=== PATIENT | male | born 1990 | race Two or more races ===

== ENCOUNTER 2023-04-09 03:20 | Emergency (ER) | payer OTHER ==
[~2023-04-09] VITALS: Ht 154.9 cm; Wt 77.0 kg
[2023-04-09 03:23] VITALS: BP 135/89; PULSE 69; RESP 16; TEMP 97.9
[2023-04-09] MEDS ORDERED: PROPARACAINE HCL 0.5% 15 ML OPHTHALMIC SOLUTION ONE (03:53)
[2023-04-09] MEDS ORDERED: FLUORESCEIN SODIUM 1 MG STRIP OU ONE (04:00)
[2023-04-09] MEDS ORDERED: PROPARACAINE HCL 0.5% 15 ML OPHTHALMIC SOLUTION OU ONE (04:00)
[2023-04-09] MEDS ORDERED: MOXI3DRO25 OD (05:00)
[2023-04-09] MEDS ORDERED: KETO-108 OU (05:01)
== END 2023-04-09 05:19 | disposition home or self-care (01) ==
LOC: EMS 03:27
DX: S05.01XA Injury of conjunctiva and corneal abrasion without foreign body, right eye, initial encounter (principal); X58.XXXA Exposure to other specified factors, initial encounter; Y93.89 Activity, other specified; Y92.89 Other specified places as the place of occurrence of the external cause; Y99.0 Civilian activity done for income or pay
CPT/HCPCS: 99283